=== PATIENT | female | born 1995 | race Two or more races ===

== ENCOUNTER 2019-05-11 06:00 | Day surgery (SDC) | payer OTHER ==
[2019-05-11] MEDS ORDERED: ULTRACET PO (11:19)
[2019-05-11] MEDS ORDERED: RECTICARE30 GM TOP (11:21)
== END 2019-05-11 18:00 | disposition home or self-care (01) ==
LOC: CIR.AMB 06:00 → SURG 11:47 → EDSTATUS 11:48 → CIR.AMB 18:00
DX: K60.1 Chronic anal fissure (principal)